=== PATIENT | male | born 1985 | race African-American/Black ===

== ENCOUNTER 2018-09-11 10:00 | Emergency (ER) | payer SELFPAY ==
[2018-09-11] MEDS ORDERED: MECLIZINE HCL 12.5 MG TAB ONE (10:44)
--- NOTE | 2018-09-11 11:23 | ER ---
Nurse's Notes [facility] Name: Noam Burgos Age: 33 yrs Sex: Male : 1985 Arrival Date: 09/11/2018 Time: 10:04 Bed 14 Private MD: None, None Diagnosis: Essential (primary) hypertension;Dizziness and giddiness Presentation: 09/11 10:14 Presenting complaint: Patient states: i woke up this morning and felt dizzy, both my tw2 ears are ringing and my left hand was numb like, and i am feeling nauseous, high blood pressure runs in my family but i dont have a hx of it. Transition of care: patient was not received from another setting of care. Onset of symptoms was September 11, 2018. Risk Assessment: Do you want to hurt yourself or someone else? Patient reports no desire to harm self or others. Initial Sepsis Screen: Does the patient meet any 2 criteria? No. Patient's initial sepsis screen is negative. Does the patient have a suspected source of infection? No. Patient's initial sepsis screen is negative. Care prior to arrival: None. 10:14 Method Of Arrival: Ambulatory tw2 10:14 Acuity: YAJAIRA 3 tw2 Triage Assessment: 10:16 General: Appears in no apparent distress. slender, Behavior is calm, cooperative, tw2 appropriate for age. Pain: Denies pain. EENT: Reports ringing in left ear and right ear. Neuro: Reports dizziness. Historical: - Allergies: 10:17 No Known Allergies; tw2 - Home Meds: 10:17 None [Active]; tw2 - PMHx: 10:17 None; tw2 - PSHx: 10:17 None; tw2 - Immunization history:: Adult Immunizations. - Social history:: Smoking status: Patient uses tobacco products, smokes one pack cigarettes per day. "one pack every 2 days", Patient uses alcohol, on a daily basis. "3 or 4 beers everyday". - Ebola Screening: : Patient denies travel to an Ebola-affected area in the 21 days before illness onset. Assessment: 10:57 Reassessment: Patient appears in no apparent distress at this time. Patient and/or sg family updated on plan of care and expected duration. Pain level reassessed. Patient is alert, oriented x 3, equal unlabored respirations, skin warm/dry/pink. Patient states feeling better. Vital Signs: 10:15 BP 165 / 109; Pulse 91; Resp 17; Temp 98.4(O); Pulse Ox 99% on R/A; Weight 58.97 kg tw2 (R); Height 5 ft. 6 in. (167.64 cm); Pain 0/10; 10:30 BP 144 / 98; Pulse 80; Resp 17; Pulse Ox 100% on R/A; tw2 10:15 Body Mass Index 20.98 (58.97 kg, 167.64 cm) tw2 ED Course: 10:04 Patient arrived in ED. mr 10:05 None, None is Private Physician. mr 10:07 Bed in low position. Call light in reach. tw2 10:10 Alejandro Thakur PA is PHCP. jr8 10:10 Shilo Taylor MD is Attending Physician. jr8 10:15 Triage completed. tw2 10:15 Arm band placed on. tw2 10:24 Fabricio Bond, RN is Primary Nurse. sg Administered Medications: 10:30 Drug: Meclizine 25 mg Route: PO; tw2 Outcome: 11:23 Discharge ordered by . jr8 11:38 Patient left the ED. Signatures: Fabricio Bond, RN TENISHA aleman Jatin Brook mr Alejandro Thakur PA PA jr8 Lashawn Blanchard RN RN Hailey Hitchcock RN RN tw2
--- NOTE | 2018-09-11 11:23 | EDPHYS ---
Physician Documentation [facility] Name: Noam Burgos Age: 33 yrs Sex: Male : 1985 Arrival Date: 09/11/2018 Time: 10:04 Bed 14 Private MD: None, None ED Physician Shilo Taylor HPI: 09/11 10:40 This 33 yrs old Black Male presents to ER via Ambulatory with complaints of Dizziness. jr8 10:40 The patient presents with feeling off balance, vertigo. Onset: The symptoms/episode jr8 began/occurred acutely, this morning. Context: just prior to the episode the patient experienced no apparent symptoms. Modifying factors: The symptoms are alleviated by holding head still, lying down, the symptoms are aggravated by movement of head, standing up, changing position. Associated signs and symptoms: Pertinent positives: nausea, Pertinent negatives: blurred vision, focal weakness, headache, syncope, vomiting. Severity of symptoms: At their worst the symptoms were moderate in the emergency department the symptoms are unchanged. The patient has not experienced similar symptoms in the past. The patient has not recently seen a physician. Reports feeling off balance when walking with sudden movements of head. Symptoms resolve when he sits still. Also reports "popping" in both ears. Historical: - Allergies: 10:17 No Known Allergies; tw2 - Home Meds: 10:17 None [Active]; tw2 - PMHx: 10:17 None; tw2 - PSHx: 10:17 None; tw2 - Immunization history:: Adult Immunizations. - Social history:: Smoking status: Patient uses tobacco products, smokes one pack cigarettes per day. "one pack every 2 days", Patient uses alcohol, on a daily basis. "3 or 4 beers everyday". - Ebola Screening: : Patient denies travel to an Ebola-affected area in the 21 days before illness onset. ROS: 10:40 Constitutional: Negative for fever, chills, and weight loss, Eyes: Negative for injury, jr8 pain, redness, and discharge, ENT: Negative for injury, pain, and discharge, Cardiovascular: Negative for chest pain, palpitations, and edema, Respiratory: Negative for shortness of breath, cough, wheezing, and pleuritic chest pain, Abdomen/GI: Negative for abdominal pain, nausea, vomiting, diarrhea, and constipation, MS/Extremity: Negative for injury and deformity, Skin: Negative for injury, rash, and discoloration. 10:40 ENT: Positive for "popping" to ears, Negative for drainage from ear(s), ear pain. 10:40 Neuro: Positive for dizziness, Negative for altered mental status, headache, syncope. Exam: 10:40 Constitutional: This is a well developed, well nourished patient who is awake, alert, jr8 and in no acute distress. Head/Face: Normocephalic, atraumatic. Eyes: Pupils equal round and reactive to light, extra-ocular motions intact. Lids and lashes normal. Conjunctiva and sclera are non-icteric and not injected. Cornea within normal limits. Periorbital areas with no swelling, redness, or edema. Cardiovascular: Regular rate and rhythm with a normal S1 and S2. No gallops, murmurs, or rubs. Normal PMI, no JVD. No pulse deficits. Respiratory: Lungs have equal breath sounds bilaterally, clear to auscultation and percussion. No rales, rhonchi or wheezes noted. No increased work of breathing, no retractions or nasal flaring. Abdomen/GI: Soft, non-tender, with normal bowel sounds. No distension or tympany. No guarding or rebound. No evidence of tenderness throughout. Skin: Warm, dry with normal turgor. Normal color with no rashes, no lesions, and no evidence of cellulitis. MS/ Extremity: Pulses equal, no cyanosis. Neurovascular intact. Full, normal range of motion. 10:40 ENT: External ear(s): are unremarkable, Ear canal(s): are normal, TM's: are normal, fluid levels, bilaterally, Nose: is normal, Mouth: is normal, Posterior pharynx: is normal, no erythema. 10:40 Neuro: Orientation: to person, place, time \\T\\ situation. Mentation: is normal, appropriate for stated age, Memory: is normal, Cranial nerves: CN II- XII are normal as tested, visual boyd are intact. extraocular movements are intact, Nystagmus is absent. Cerebellar function: Motor: is normal, strength is 5/5 in all extremities, Sensation: is normal, no obvious gross deficits. Vital Signs: 10:15 BP 165 / 109; Pulse 91; Resp 17; Temp 98.4(O); Pulse Ox 99% on R/A; Weight 58.97 kg tw2 (R); Height 5 ft. 6 in. (167.64 cm); Pain 0/10; 10:30 BP 144 / 98; Pulse 80; Resp 17; Pulse Ox 100% on R/A; tw2 10:15 Body Mass Index 20.98 (58.97 kg, 167.64 cm) tw2 MDM: 10:10 Patient medically screened. jr8 11:20 Data reviewed: vital signs, nurses notes, and as a result, I will discharge patient. jr8 Data interpreted: Pulse oximetry: on room air is 100 %. Interpretation: normal. Counseling: I had a detailed discussion with the patient and/or guardian regarding: the historical points, exam findings, and any diagnostic results supporting the discharge/admit diagnosis, the presence of at least one elevated blood pressure reading (>120/80) during this emergency department visit, the need for outpatient follow up, a family practitioner, to return to the emergency department if symptoms worsen or persist or if there are any questions or concerns that arise at home. Special discussion: I have referred the patient to see his PCP for further evaluation of high blood pressure. ED course: Patient feeling much better. No dizziness with movement now. BP normalized. Patient stated that elevated BP has been going on for some time. Instructed that he needs to f/u with [facility] and will start him on low dose amlodipine for elevated diastolic. Knows to come back if worse. . Administered Medications: 10:30 Drug: Meclizine 25 mg Route: PO; tw2 Disposition: 12:59 Co-signature as Attending Physician, Shilo Taylor MD. rn Disposition: 09/11/18 11:23 Discharged to Home. Impression: Essential (primary) hypertension, Dizziness and giddiness. - Condition is Stable. - Discharge Instructions: Dizziness, Hypertension, Vertigo. - Prescriptions for amlodipine 5 mg Oral tablet - take 1 tablet by ORAL route once daily; 30 tablet. Meclizine 25 mg Oral Tablet - take 1 tablet by ORAL route every 8 hours As needed; 30 tablet. - Work release form, Medication Reconciliation Form, Thank You Letter, Antibiotic Education, Prescription Opioid Use form. - Follow up: Private Physician; When: 5 - 6 days; Reason: Recheck today's complaints, Continuance of care, Re-evaluation by your physician. - Problem is new. - Symptoms are resolved. Signatures: Shilo Taylor MD MD rn Roszak, Josh, PA PA jr8 Lashawn Blanchard RN RN hb Hailey Hitchcock RN RN tw2 Corrections: (The following items were deleted from the chart) 11:38 11:23 09/11/2018 11:23 Discharged to Home. Impression: Essential (primary) hb hypertension; Dizziness and giddiness. Condition is Stable. Forms are Medication Reconciliation Form, Thank You Letter, Antibiotic Education, Prescription Opioid Use. Follow up: Private Physician; When: 5 - 6 days; Reason: Recheck today's complaints, Continuance of care, Re-evaluation by your physician. Problem is new. Symptoms are resolved. jr8
== END 2018-09-11 11:38 | disposition home or self-care (01) ==
LOC: ER 10:00
DX: R42 Dizziness and giddiness (principal); F17.210 Nicotine dependence, cigarettes, uncomplicated; I10 Essential (primary) hypertension
CPT/HCPCS: 99282